=== PATIENT | male | born 1975 | race Caucasian/White ===

== ENCOUNTER → 2018-11-24 | Outpatient (CLI) | payer OTHER ==
[~2018-11-24] MED LIST: BUPIVACAINE MPF 0.5% 30 ML VIAL. ONE; methylPREDNISolone ACETATE 80 MG/ML VIAL. ONE
== END | disposition home or self-care (01) ==
LOC: SURG 12:10
PROVIDERS: ATTEND Anesthesiology Pain Medicine
DX: M79.18 Myalgia, other site (principal); Z79.899 Other long term (current) drug therapy; Z98.1 Arthrodesis status; M50.322 Other cervical disc degeneration at C5-C6 level
CPT/HCPCS: 20553; J1040; J3490

== ENCOUNTER → 2019-01-24 | Outpatient (CLI) | payer OTHER | END | disposition home or self-care (01) | LOC: SURG 08:21 | PROVIDERS: ATTEND Anesthesiology Pain Medicine | DX: M54.2 Cervicalgia (principal); M25.519 Pain in unspecified shoulder; F17.200 Nicotine dependence, unspecified, uncomplicated; Z79.899 Other long term (current) drug therapy | CPT/HCPCS: 99214 ==